=== PATIENT | male | born 1990 | race Caucasian/White ===

== ENCOUNTER 2019-05-11 21:35 | Emergency (ER) | payer OTHER ==
[~2019-05-11] VITALS: Ht 190.5 cm; Wt 81.7 kg
[~2019-05-11 21:35] MED LIST: CARAFATE 1 GM TA1 G1 OR; NOHOMEMEDICATIONS; PEPCID40 MG PO; PHENERGAN 25 MG25 M1 PO
[2019-05-11] MEDS ORDERED: ALEVE220 M1 PO (21:47)
[2019-05-11] MEDS ORDERED: NORCO 5-325 TA1 EAC1 PO (22:54)
[2019-05-11 23:04] VITALS: BP 137/52
== END 2019-05-11 23:07 | disposition home or self-care (01) ==
LOC: M.ERS 21:35
DX: S32.2XXA Fracture of coccyx, initial encounter for closed fracture (principal); F17.210 Nicotine dependence, cigarettes, uncomplicated; W01.0XXA Fall on same level from slipping, tripping and stumbling without subsequent striking against object, initial encounter; Y93.89 Activity, other specified; Y92.89 Other specified places as the place of occurrence of the external cause; Y99.8 Other external cause status

== ENCOUNTER 2020-04-16 11:31 | Emergency (ER) | payer OTHER ==
[~2020-04-16] VITALS: Ht 190.5 cm; Wt 86.2 kg
[~2020-04-16 11:31] MED LIST changes: +ALEVE220 M1 PO; +NORCO 5-325 TA1 EAC1 PO
[2020-04-16 11:40] VITALS: BP 116/69
[2020-04-16 12:08] LABS: INFLUENZA A ANTIGEN Negative (Negative); INFLUENZA B ANTIGEN Negative (Negative)
== END 2020-04-16 12:39 | disposition home or self-care (01) ==
LOC: M.ERS 11:31
PROVIDERS: Emergency Medicine Emergency Medical Services
DX: U07.1 COVID-19 (principal)

== ENCOUNTER 2020-12-31 17:47 | Emergency (ER) | payer OTHER ==
[~2020-12-31] VITALS: Ht 190.5 cm; Wt 68.0 kg
[2020-12-31] MEDS ORDERED: NORCO5 PO (20:23)
[2020-12-31] MEDS ORDERED: IBUPROFEN 800800 M1 PO (20:29)
[2020-12-31 20:51] VITALS: BP 119/74
== END 2020-12-31 20:52 | disposition home or self-care (01) ==
LOC: M.ERS 17:47
DX: S62.001A Unspecified fracture of navicular [scaphoid] bone of right wrist, initial encounter for closed fracture (principal); F17.210 Nicotine dependence, cigarettes, uncomplicated; Z90.89 Acquired absence of other organs; W17.89XA Other fall from one level to another, initial encounter; Y93.89 Activity, other specified; Y92.89 Other specified places as the place of occurrence of the external cause; Y99.8 Other external cause status